=== PATIENT | male | born 1995 | race Hispanic/Latino ===

== ENCOUNTER 2017-03-09 15:30 | Emergency (ER) | payer SELFPAY ==
[~2017-03-09] VITALS: Ht 177.8 cm; Wt 95.0 kg
[~2017-03-09 15:30] MED LIST: EQL IBUPROFEN200 MG PO; IBUPROFEN; NO; ULTRAM50 M1 PO
[2017-03-09] MEDS ORDERED: NAPROSYN500 MG PO (17:16)
[2017-03-09] MEDS ORDERED: FLEXERIL PO (17:16)
[2017-03-09 17:20] VITALS: BP 121/66
== END 2017-03-09 17:20 | disposition home or self-care (01) | DRG 563 ==
LOC: ED 15:30
DX: S39.012A Strain of muscle, fascia and tendon of lower back, initial encounter (principal); X58.XXXA Exposure to other specified factors, initial encounter